=== PATIENT | male | born 1945 | race Caucasian/White ===

== ENCOUNTER 2017-07-30 07:13 | Outpatient (CLI) | payer OTHER, MEDICARE ==
--- NOTE | 2017-07-30 08:04 | ULT ---
RENAL SONOGRAM: History: Urinary tract obstruction. Comparison: CT 12-30-16 FINDINGS: The right kidney is 11.0 cm in length. Pelvocaliectasis is similar to the CT from 12-30-16. No cortica l abnormalities are apparent. The left kidney is 10.4 cm in length and has a normal sonographic appe arance. Urinary bladder is incompletely distended. IMPRESSION: Chronic moderate right pelvocaliectasis, stable compared to CT from 12-30-16. POS: [facility]
== END 2017-07-30 07:14 | disposition home or self-care (01) ==
LOC: ULT 07:13
PROVIDERS: ATTEND Urology
DX: N13.5 Crossing vessel and stricture of ureter without hydronephrosis (principal)
CPT/HCPCS: 76770

== ENCOUNTER 2023-06-23 13:41 | Outpatient (CLI) | payer MEDICARE | END 2023-06-23 13:42 | disposition home or self-care (01) | LOC: BICULT 13:41 | PROVIDERS: ATTEND Internal Medicine Nephrology | DX: N18.30 Chronic kidney disease, stage 3 unspecified (principal); N13.30 Unspecified hydronephrosis; R39.198 Other difficulties with micturition | CPT/HCPCS: 76770 ==

== ENCOUNTER 2023-08-06 12:48 | Outpatient (CLI) | payer MEDICARE | END 2023-08-06 12:49 | disposition home or self-care (01) | LOC: BICCT 12:48 | PROVIDERS: ATTEND Internal Medicine Nephrology | DX: N20.0 Calculus of kidney (principal); N13.1 Hydronephrosis with ureteral stricture, not elsewhere classified | CPT/HCPCS: 74176 ==

== ENCOUNTER 2023-12-03 07:18 | Outpatient (CLI) | payer MEDICARE ==
[2023-12-03] MEDS ORDERED: Iopamidol 370 76% 100 ML VIAL ONE (11:04)
== END 2023-12-03 07:19 | disposition home or self-care (01) ==
LOC: CT 07:18
PROVIDERS: ATTEND Internal Medicine Cardiovascular Disease
DX: I10 Essential (primary) hypertension (principal); I70.1 Atherosclerosis of renal artery; I77.4 Celiac artery compression syndrome; N13.30 Unspecified hydronephrosis; R91.1 Solitary pulmonary nodule
CPT/HCPCS: 74175; 82565

== ENCOUNTER 2024-07-28 12:43 | Outpatient (CLI) | payer MEDICARE | END 2024-07-28 12:44 | disposition home or self-care (01) | LOC: CT 12:43 | PROVIDERS: ATTEND Internal Medicine | DX: R91.1 Solitary pulmonary nodule (principal) | CPT/HCPCS: 71250 ==

== ENCOUNTER 2025-07-05 13:30 | Outpatient (CLI) | payer MEDICARE ==
[2025-07-05 15:00] LABS: #Basophils 0.06 10x3/uL (0.0-0.2); #Eosinophils 0.17 10x3/uL (0.0-0.7); #Monocytes 0.85 10x3/uL (0.11-0.59); #Neutrophils 3.53 10x3/uL (1.40-6.50); %Basophils 0.9 % (0.0-1.0); %Eosinophils 2.6 % (0.0-10.0); %Lymphocytes 29.5 % (21.0-51.0); %Monocytes 13.0 % (0.0-10.0); %Neutrophils 53.8 % (42.0-75.0); Hematocrit 31.9 % (42.0-52.0); Hemoglobin 10.2 g/dL (14.0-18.0); Mean Corpuscular Hemoglobin 29.5 pg (27.0-31.0); Mean Corpuscular Volume 92.2 fL (78.0-98.0); Platelet Count 240 10x3/uL (130-400); Red Blood Cell (RBC) Count 3.46 mill/uL (4.70-6.10); White Blood Cell (WBC) Count 6.55 10x3/uL (4.8-10.8)
[2025-07-05 15:14] LABS: Anion Gap 9 mmol/L (10-20); BUN (Urea Nitrogen) 20 mg/dL (8.4-25.7); Calc. Creatinine Clearance 0 mL/min (70-130); Calcium 8.8 mg/dL (7.8-10.44); Carbon Dioxide 27 mmol/L (23-31); Chloride 104 mmol/L (98-107); Glucose 154 mg/dL (83-110); Potassium 5.3 mmol/L (3.5-5.1); Sodium 135 mmol/L (136-145)
== END 2025-07-05 13:31 | disposition home or self-care (01) ==
LOC: LABBT 13:30
PROVIDERS: ATTEND Internal Medicine Cardiovascular Disease
DX: Z01.812 Encounter for preprocedural laboratory examination (principal); I25.10 Atherosclerotic heart disease of native coronary artery without angina pectoris
CPT/HCPCS: 80048; 85025

== ENCOUNTER 2025-07-07 05:42 | Day surgery (SDC) | payer MEDICARE ==
[2025-07-05 13:59] VITALS: BMI 25.8
[2025-07-07] MEDS ORDERED: Heparin 10,000 UNITS/ 10 ML VIAL ONE ×2 (06:24→13:56)
[2025-07-07] MEDS ORDERED: EPINEPHrine 1 MG/10 ML Abboject SYRINGE ONE ×2 (06:24→13:56)
[2025-07-07] MEDS ORDERED: Adenosine 6 mg (2 mL) VIAL ONE ×2 (06:24→13:56)
[2025-07-07] MEDS ORDERED: Lidocaine 1% (PF) 30 ML VIAL ONE ×2 (06:24→13:56)
[2025-07-07] MEDS ORDERED: PHENYLEPHRINE-NS 100 MCG/ML 10 ML SYRINGE ONE ×2 (06:25→13:56)
[2025-07-07] MEDS ORDERED: Nitroglycerin 50 MG/250 ML BOT 0 ML ONE (06:25)
[2025-07-07 07:14] LABS: Anion Gap 12 mmol/L (10-20); BUN (Urea Nitrogen) 22 mg/dL (8.4-25.7); Calc. Creatinine Clearance 43 mL/min (70-130); Calcium 8.7 mg/dL (7.8-10.44); Carbon Dioxide 23 mmol/L (23-31); Chloride 106 mmol/L (98-107); Glucose 133 mg/dL (83-110); Potassium 4.7 mmol/L (3.5-5.1); Sodium 136 mmol/L (136-145)
[2025-07-07 12:53] LABS: Anion Gap 13 mmol/L (10-20); BUN (Urea Nitrogen) 20 mg/dL (8.4-25.7); Calc. Creatinine Clearance 44 mL/min (70-130); Calcium 8.9 mg/dL (7.8-10.44); Carbon Dioxide 23 mmol/L (23-31); Chloride 112 mmol/L (98-107); Glucose 111 mg/dL (83-110); Potassium 5.3 mmol/L (3.5-5.1); Sodium 143 mmol/L (136-145)
== END 2025-07-07 19:30 | disposition home or self-care (01) ==
LOC: CCL 05:42
PROVIDERS: ATTEND Internal Medicine Cardiovascular Disease
PROC: 4A023N7 Measurement of Cardiac Sampling and Pressure, Left Heart, Percutaneous Approach (ICD-10-PCS; principal; 2025-07-07)
DX: I25.10 Atherosclerotic heart disease of native coronary artery without angina pectoris (principal); I12.9 Hypertensive chronic kidney disease with stage 1 through stage 4 chronic kidney disease, or unspecified chronic kidney disease; N18.9 Chronic kidney disease, unspecified; E11.22 Type 2 diabetes mellitus with diabetic chronic kidney disease; E11.51 Type 2 diabetes mellitus with diabetic peripheral angiopathy without gangrene; E78.5 Hyperlipidemia, unspecified; Z95.5 Presence of coronary angioplasty implant and graft; Z79.82 Long term (current) use of aspirin; Z79.84 Long term (current) use of oral hypoglycemic drugs; Z79.899 Other long term (current) drug therapy
CPT/HCPCS: 80048 ×2; 93458; C1769 ×2; C1887; C1894; J2250; J3010; 99152; J0153; J0165; J0461; J1644